=== PATIENT | female | born 1980 | race Caucasian/White ===

== ENCOUNTER 2018-04-06 12:34 | Emergency (ER) | payer OTHER, MEDICAID, SELFPAY ==
[2018-04-06 12:41] VITALS: BP 136/103; PULSE 118; RESP 21; TEMP 36.7; O2SAT 100; BMI 28.3
--- NOTE | 2018-04-06 12:56 | ED.ANXIETY ---
HPI - Anxiety <RAUL Philippe - Last Filed: 04/06/18 21:41> General Chief Complaint: Anxiety Stated Complaint: Chest hurts,hard time with anxiety Time Seen by Provider: 04/06/18 12:55 Source: patient Mode of arrival: ambulatory Limitations: no limitations History of Present Illness HPI narrative: 37-year-old female with history of anxiety and panic attacks as a nonsmoker here for complaint of chest pain for the last month. She reports that she has been having difficulty with anxiety during the same timeframe. She currently takes sertraline and alprazolam for her symptoms. She denies any increased stress recently. She denies any trauma to the chest area. She does report having periods of hyperventilation. She denies any suicidal homicidal ideation she denies any stressors relievers of her symptoms. She denies smoking or any substance abuse. No nausea or vomiting. She does report she has reproducible pain with palpation to the chest wall. MD complaint: anxiety Related Data Previous Rx's Medication Instructions Recorded alprazolam 0.25 mg tablet 0.25 mg PO Q12HP PRN #30 tab 04/08/18 sertraline 50 mg tablet 75 mg PO QDAY #90 tab 04/08/18 Allergies Allergy/AdvReac Type Severity Reaction Status Date / Time No Known Drug Allergies Allergy Verified 04/08/18 10:28 Review of Systems <RAUL Philippe - Last Filed: 04/06/18 21:41> Constitutional Denies chills, Denies fatigue, Denies fever(s), Denies lethargy and Denies weakness Eyes Denies change in vision, Denies eye discharge, Denies irritation and Denies loss of vision ENT Ears, Nose, Mouth, and Throat: Denies change in voice, Denies neck pain and Denies sore throat Cardiovascular Reports chest pain, Denies dyspnea and Denies dyspnea on exertion Respiratory Denies cough, Denies dyspnea, Denies dyspnea on exertion and Denies wheezing Gastrointestinal Gastrointestinal: Denies abdominal pain, Denies change in bowel habits, Denies diarrhea, Denies nausea and Denies vomiting Genitourinary Denies hematuria, Denies flank pain, Denies urinary incontinence and Denies urinary urgency Musculoskeletal Denies neck pain Integumentary/Breasts Denies pruritus, Denies erythema, Denies rash and Denies wounds Neurologic Denies loss of vision and Denies weakness Psychiatric Reports anxiety Endocrine Denies fatigue and Denies flushing Hematologic/Lymphatic Denies easy bruising Allergic/Immunologic Denies wheezing Exam <RAUL Philippe - Last Filed: 04/06/18 21:41> Initial Vital Signs Initial Vital Signs: Vital Signs Temperature 98.1 F 04/06/18 12:41 Pulse Rate 118 H 04/06/18 12:41 Respiratory Rate 21 04/06/18 12:41 Blood Pressure 136/103 H 04/06/18 12:41 Pulse Oximetry 100 04/06/18 12:41 Const General: cooperative and well developed Nutritional Appearance: well nourished Orientation: alert, awake, oriented x3 and not confused HENMT Mouth: oral mucosae normal, oropharynx normal and moist mucous membranes Eyes Conjunctivae: conjunctivae normal Sclera: sclerae normal Pupils: PERRL EOM: EOM intact bilaterally Chest Other: Pain with palpation to the sternal area Resp Effort & Inspection: normal respiratory effort, able to speak in complete sentences, no respiratory distress and no use of accessory muscles Auscultation: clear to auscultation bilaterally, no rales, no rhonchi and no wheezes Cardio Rate: regular rate Rhythm: regular rhythm Heart Sounds: no click, no gallops, no murmurs and no rubs Pulses: normal peripheral pulses Skin General: no rashes or lesions noted, No jaundice and No petechiae Neuro General: alert, oriented x3, gait normal and no focal motor deficits Speech: speech normal Psych Appearance: grossly normal and well kempt Speech and Movement: speech and movement normal Mood: anxious mood Thought Content: no homicidality and suicidality <Bismark Laughlin DO - Last Filed: 04/09/18 08:43> Initial Vital Signs Initial Vital Signs: Vital Signs Temperature 98.1 F 04/06/18 12:41 Pulse Rate 118 H 04/06/18 12:41 Respiratory Rate 04/06/18 12:41 Blood Pressure 136/103 H 04/06/18 12:41 Pulse Oximetry 100 04/06/18 12:41 Scores <RAUL Philippe - Last Filed: 04/06/18 21:41> HEART Score Heart Score history: Slightly Suspicious Heart Score EKG: Normal Heart Score Age: < 45 years old Heart Score risk factors: No known risk factors Heart Score troponin: < or = to normal limit Heart Score Total: 0 PERC Score Age greater than or equal to 50 years: No Heart rate greater than or equal to 100 bpm: Yes Room Air O2 Sat less than 95%: No Unilateral leg swelling: No Recent trauma or surgery: No Hemoptysis: No Prior PE or DVT: No Hormone Use: No Total PERC Score: 1 Course <RAUL Philippe - Last Filed: 04/06/18 21:41> Orders Ordered: Discontinued Medications Sodium Chloride (Normal Saline 0.9%) 1,000 mls @ 1,000 mls/hr IV BOLUS ONE Stop: 04/06/18 14:02 Last Infusion: 04/06/18 14:21 Dose: 0 mls/hr Admin: 04/06/18 13:13 Dose: 1,000 mls/hr Lorazepam (Ativan) 1 mg IV NOW ONE Stop: 04/06/18 13:04 Last Admin: 04/06/18 13:13 Dose: 1 mg Vital Signs - 8 hr 04/06/18 13:56 Pulse Rate 83 Respiratory Rate 19 Blood Pressure [Right Arm] 126/89 Pulse Oximetry 93 <Bismark Laughlin DO - Last Filed: 04/09/18 08:43> Orders Ordered: Discontinued Medications Sodium Chloride (Normal Saline 0.9%) 1,000 mls @ 1,000 mls/hr IV BOLUS ONE Stop: 04/06/18 14:02 Last Infusion: 04/06/18 14:21 Dose: 0 mls/hr Admin: 04/06/18 13:13 Dose: 1,000 mls/hr Lorazepam (Ativan) 1 mg IV NOW ONE Stop: 04/06/18 13:04 Last Admin: 04/06/18 13:13 Dose: 1 mg Vital Signs - 8 hr 04/06/18 13:56 Pulse Rate 83 Respiratory Rate 19 Blood Pressure [Right Arm] 126/89 Pulse Oximetry 93 MDM - Anxiety <RAUL Philippe - Last Filed: 04/06/18 21:41> Lab Data Result diagrams: 04/06/18 12:46 04/06/18 12:46 Lab Results 04/06/18 04/06/18 04/06/18 Range/Units 12:46 12:46 12:46 WBC 10.3 (4.5-11.0) X10^3/uL RBC 4.85 (4.0-5.2) X10^6/uL Hgb 14.5 (12.0-16.0) g/dL Hct 41.2 (36-46) % MCV 84.9 (80-100) fL MCH 29.8 (26-34) PG MCHC 35.1 (30-36) % RDW 13.3 (11.6-14.8) % Plt Count 439 H (150-400) X10^3/uL Neut % (Auto) 62.3 (50-75) % Lymph % (Auto) 28.7 (25-40) % [place] % (Auto) 6.7 (3-14) % Eos % (Auto) 1.5 L (2-4) % Baso % (Auto) 0.8 (0-2) % Neut # (Auto) 6400 H (5781-3968) /uL APTT 34 (26.4-36.2) SECONDS D-Dimer < 200 (<230) ng/mL Sodium 144 (137-145) mmol/L Potassium 3.8 (3.4-5.1) mmol/L Chloride 104 (98-107) mmol/L Carbon Dioxide 22 (22-32) mmol/L BUN 11 (7-17) mg/dL Creatinine 0.60 (0.52-1.04) mg/dL Estimated GFR > 60.0 (>60) mL/min BUN/Creatinine Ratio 18.3 (6-22) Glucose 116 H (70-100) mg/dL Calcium 9.8 (8.4-10.2) mg/dL Total Bilirubin 0.6 (0.2-1.3) mg/dL AST 31 (14-36) IU/L ALT 30 (9-52) IU/L Alkaline Phosphatase 91 (38-126) U/L Total Creatine Kinase 38 (30-135) U/L Troponin I < 0.012 (0.01-0.034) ng/mL Total Protein 8.2 (6.3-8.2) g/dL Albumin 4.8 (3.5-5.0) g/dL Globulin 3.4 (1.7-4.1) g/dL Albumin/Globulin Ratio 1.4 (1.0-2.8) Point of Care Testing Test Results Negative Urine Dip Bedside Urine Glucose Negative Bedside Urine Bilirubin - Negative Bedside Urine Ketone - Negative Urine Specific [place] 1.015 Bedside Urine Occult Blood ++ Bedside Urine pH 6.0 Bedside Urine Protein - Negative Bedside Urine Urobilinogen - Negative Bedside Urine Nitrite - Negative Bedside Urine Leukocytes - Negative Esterase Imaging Data Chest x-ray: Radiologist's impression: [place] [id number] [place] [id number] XRay Report Signed Patient: Kathy Bryant JMR#: [id number] : 1980Acct:[id number] Age/Sex: 37 / FDate of Service: 04/06/18 Loc: ED Accession Number: [id number] Procedure: XR chest 1V Ordering Provider: Chano Lazo PROCEDURE: XR CHEST 1V INDICATIONS: Chest pain TECHNIQUE: One view of the chest was acquired. COMPARISON: [facility], , CHEST 1 VIEW, 11/01/2016, 7:44. FINDINGS: Surgical changes and devices: None. Lungs and pleura: No pleural effusions or pneumothorax. Lungs are clear. Mediastinum: Mediastinal contours appear normal. Heart size is normal. Bones and chest wall: No suspicious bony lesions. Overlying soft tissues appear unremarkable. IMPRESSION: Stable chest. No acute cardiopulmonary process is evident. Dictated by: Rayo Mays M.D. on 04/06/2018 at 12:54 Approved by: Rayo Mays M.D. on 04/06/2018 at 12:54 ECG Data Interpretation: EKG shows sinus rhythm with no ST elevation or depression. No ectopy. Ventricular rate of 92. W[place] interval of 170. QRS duration is 72. QT of 323, MDM Narrative Medical decision making narrative: CBC and Chem panel were obtained were unremarkable. D-dimer was obtained was negative. EKG shows sinus rhythm no ST elevation depression or ectopy. Chest x-ray was obtained was negative for any acute findings. Patient was given Ativan IV in the emergency room and felt better. Urinalysis shows a positive for blood patient is currently on her menstrual cycle no signs UTI. Signs and symptoms presents as anxiety X exacerbation with panic attack. She is encouraged to continue taking her anxiety medication as prescribed. She has an appointment with a mental health counselor. Recommended she follow up with primary care and also mental health counselor for further treatment. She is encouraged to use breathing exercises to help her symptoms. For any worsening symptoms return to the emergency room. <Bismark Laughlin, DO - Last Filed: 04/09/18 08:43> Lab Data Lab Results 04/06/18 04/06/18 04/06/18 Range/Units 12:46 12:46 12:46 WBC 10.3 (4.5-11.0) X10^3/uL RBC 4.85 (4.0-5.2) X10^6/uL Hgb 14.5 (12.0-16.0) g/dL Hct 41.2 (36-46) % MCV 84.9 (80-100) fL MCH 29.8 (26-34) PG MCHC 35.1 (30-36) % RDW 13.3 (11.6-14.8) % Plt Count 439 H (150-400) X10^3/uL Neut % (Auto) 62.3 (50-75) % Lymph % (Auto) 28.7 (25-40) % [place] % (Auto) 6.7 (3-14) % Eos % (Auto) 1.5 L (2-4) % Baso % (Auto) 0.8 (0-2) % Neut # (Auto) 6400 H (5357-0498) /uL APTT 34 (26.4-36.2) SECONDS D-Dimer < 200 (<230) ng/mL Sodium 144 (137-145) mmol/L Potassium 3.8 (3.4-5.1) mmol/L Chloride 104 (98-107) mmol/L Carbon Dioxide 22 (22-32) mmol/L BUN 11 (7-17) mg/dL Creatinine 0.60 (0.52-1.04) mg/dL Estimated GFR > 60.0 (>60) mL/min BUN/Creatinine Ratio 18.3 (6-22) Glucose 116 H (70-100) mg/dL Calcium 9.8 (8.4-10.2) mg/dL Total Bilirubin 0.6 (0.2-1.3) mg/dL AST 31 (14-36) IU/L ALT 30 (9-52) IU/L Alkaline Phosphatase 91 (38-126) U/L Total Creatine Kinase 38 (30-135) U/L Troponin I < 0.012 (0.01-0.034) ng/mL Total Protein 8.2 (6.3-8.2) g/dL Albumin 4.8 (3.5-5.0) g/dL Globulin 3.4 (1.7-4.1) g/dL Albumin/Globulin Ratio 1.4 (1.0-2.8) Point of Care Testing Test Results Negative Urine Dip Bedside Urine Glucose Negative Bedside Urine Bilirubin - Negative Bedside Urine Ketone - Negative Urine Specific [place] 1.015 Bedside Urine Occult Blood ++ Bedside Urine pH 6.0 Bedside Urine Protein - Negative Bedside Urine Urobilinogen - Negative Bedside Urine Nitrite - Negative Bedside Urine Leukocytes - Negative Esterase Discharge Plan Departure Patient Disposition: Home Clinical Impression: Anxiety Discharge Date/Time: 04/06/18 14:23 Interventions: ED Discharge Assessment Last Done: 04/06/18 14:22 Instructions: DI for Anxiety -- Adult Activity Restrictions/Additional Instructions: Laboratory results and imaging today were unremarkable. Signs and symptoms presents as anxiety exacerbation. Use currently prescribed anxiety medication as prescribed. Follow-up with your primary care provider and mental health provider. Use breathing exercises to help with anxiety symptoms. For any worsening symptoms return to the emergency room. Prescriptions: No Action sertraline [Zoloft] 50 mg tablet 75 mg PO QDAY Qty: 90 RF: 3 alprazolam 0.25 mg tablet 0.25 mg PO Q12HP PRN (Reason: Anxiety) Qty: 30 RF: 0 Referrals: Florinda Boston MD [Primary Care Provider] - <Bismark Laughlin DO - Last Filed: 04/09/18 08:43> [facility]: I was immediately available in the department for consultation. Documentation has been reviewed. I agree with assessment and plan.
--- NOTE | 2018-04-06 13:03 | DI.RAD.S_ITS ---
PROCEDURE: XR CHEST 1V INDICATIONS: Chest pain TECHNIQUE: One view of the chest was acquired. COMPARISON: [facility], , CHEST 1 VIEW, 11/01/2016, 7:44. FINDINGS: Surgical changes and devices: None. Lungs and pleura: No pleural effusions or pneumothorax. Lungs are clear. Mediastinum: Mediastinal contours appear normal. Heart size is normal. Bones and chest wall: No suspicious bony lesions. Overlying soft tissues appear unremarkable. IMPRESSION: Stable chest. No acute cardiopulmonary process is evident. Dictated by: Rayo Mays M.D. on 04/06/2018 at 12:54 Approved by: Rayo Mays M.D. on 04/06/2018 at 12:54
--- NOTE | 2018-04-06 13:07 | ED_ITS ---
HPI - Anxiety <RAUL Philippe - Last Filed: 04/06/18 21:41> General Chief Complaint: Anxiety Stated Complaint: Chest hurts,hard time with anxiety Time Seen by Provider: 04/06/18 12:55 Source: patient Mode of arrival: ambulatory Limitations: no limitations History of Present Illness HPI narrative: 37-year-old female with history of anxiety and panic attacks as a nonsmoker here for complaint of chest pain for the last month. She reports that she has been having difficulty with anxiety during the same timeframe. She currently takes sertraline and alprazolam for her symptoms. She denies any increased stress recently. She denies any trauma to the chest area. She does report having periods of hyperventilation. She denies any suicidal homicidal ideation she denies any stressors relievers of her symptoms. She denies smoking or any substance abuse. No nausea or vomiting. She does report she has reproducible pain with palpation to the chest wall. MD complaint: anxiety Related Data Previous Rx's Medication Instructions Recorded alprazolam 0.25 mg tablet 0.25 mg PO Q12HP PRN #30 tab 04/08/18 sertraline 50 mg tablet 75 mg PO QDAY #90 tab 04/08/18 Allergies Allergy/AdvReac Type Severity Reaction Status Date / Time No Known Drug Allergies Allergy Verified 04/08/18 10:28 Review of Systems <RAUL Philippe - Last Filed: 04/06/18 21:41> Constitutional Denies chills, Denies fatigue, Denies fever(s), Denies lethargy and Denies weakness Eyes Denies change in vision, Denies eye discharge, Denies irritation and Denies loss of vision ENT Ears, Nose, Mouth, and Throat: Denies change in voice, Denies neck pain and Denies sore throat Cardiovascular Reports chest pain, Denies dyspnea and Denies dyspnea on exertion Respiratory Denies cough, Denies dyspnea, Denies dyspnea on exertion and Denies wheezing Gastrointestinal Gastrointestinal: Denies abdominal pain, Denies change in bowel habits, Denies diarrhea, Denies nausea and Denies vomiting Genitourinary Denies hematuria, Denies flank pain, Denies urinary incontinence and Denies urinary urgency Musculoskeletal Denies neck pain Integumentary/Breasts Denies pruritus, Denies erythema, Denies rash and Denies wounds Neurologic Denies loss of vision and Denies weakness Psychiatric Reports anxiety Endocrine Denies fatigue and Denies flushing Hematologic/Lymphatic Denies easy bruising Allergic/Immunologic Denies wheezing Exam <RAUL Philippe - Last Filed: 04/06/18 21:41> Initial Vital Signs Initial Vital Signs: Vital Signs Temperature 98.1 F 04/06/18 12:41 Pulse Rate 118 H 04/06/18 12:41 Respiratory Rate 21 04/06/18 12:41 Blood Pressure 136/103 H 04/06/18 12:41 Pulse Oximetry 100 04/06/18 12:41 Const General: cooperative and well developed Nutritional Appearance: well nourished Orientation: alert, awake, oriented x3 and not confused HENMT Mouth: oral mucosae normal, oropharynx normal and moist mucous membranes Eyes Conjunctivae: conjunctivae normal Sclera: sclerae normal Pupils: PERRL EOM: EOM intact bilaterally Chest Other: Pain with palpation to the sternal area Resp Effort & Inspection: normal respiratory effort, able to speak in complete sentences, no respiratory distress and no use of accessory muscles Auscultation: clear to auscultation bilaterally, no rales, no rhonchi and no wheezes Cardio Rate: regular rate Rhythm: regular rhythm Heart Sounds: no click, no gallops, no murmurs and no rubs Pulses: normal peripheral pulses Skin General: no rashes or lesions noted, No jaundice and No petechiae Neuro General: alert, oriented x3, gait normal and no focal motor deficits Speech: speech normal Psych Appearance: grossly normal and well kempt Speech and Movement: speech and movement normal Mood: anxious mood Thought Content: no homicidality and suicidality <Bismark Laughlin DO - Last Filed: 04/09/18 08:43> Initial Vital Signs Initial Vital Signs: Vital Signs Temperature 98.1 F 04/06/18 12:41 Pulse Rate 118 H 04/06/18 12:41 Respiratory Rate 04/06/18 12:41 Blood Pressure 136/103 H 04/06/18 12:41 Pulse Oximetry 100 04/06/18 12:41 Scores <RAUL hPilippe - Last Filed: 04/06/18 21:41> HEART Score Heart Score history: Slightly Suspicious Heart Score EKG: Normal Heart Score Age: < 45 years old Heart Score risk factors: No known risk factors Heart Score troponin: < or = to normal limit Heart Score Total: 0 PERC Score Age greater than or equal to 50 years: No Heart rate greater than or equal to 100 bpm: Yes Room Air O2 Sat less than 95%: No Unilateral leg swelling: No Recent trauma or surgery: No Hemoptysis: No Prior PE or DVT: No Hormone Use: No Total PERC Score: 1 Course <RAUL Philippe - Last Filed: 04/06/18 21:41> Orders Ordered: Discontinued Medications Sodium Chloride (Normal Saline 0.9%) 1,000 mls @ 1,000 mls/hr IV BOLUS ONE Stop: 04/06/18 14:02 Last Infusion: 04/06/18 14:21 Dose: 0 mls/hr Admin: 04/06/18 13:13 Dose: 1,000 mls/hr Lorazepam (Ativan) 1 mg IV NOW ONE Stop: 04/06/18 13:04 Last Admin: 04/06/18 13:13 Dose: 1 mg Vital Signs - 8 hr 04/06/18 13:56 Pulse Rate 83 Respiratory Rate 19 Blood Pressure [Right Arm] 126/89 Pulse Oximetry 93 <Bismark Laughlin DO - Last Filed: 04/09/18 08:43> Orders Ordered: Discontinued Medications Sodium Chloride (Normal Saline 0.9%) 1,000 mls @ 1,000 mls/hr IV BOLUS ONE Stop: 04/06/18 14:02 Last Infusion: 04/06/18 14:21 Dose: 0 mls/hr Admin: 04/06/18 13:13 Dose: 1,000 mls/hr Lorazepam (Ativan) 1 mg IV NOW ONE Stop: 04/06/18 13:04 Last Admin: 04/06/18 13:13 Dose: 1 mg Vital Signs - 8 hr 04/06/18 13:56 Pulse Rate 83 Respiratory Rate 19 Blood Pressure [Right Arm] 126/89 Pulse Oximetry 93 MDM - Anxiety <RAUL Philippe - Last Filed: 04/06/18 21:41> Lab Data Result diagrams: 04/06/18 12:46 04/06/18 12:46 Lab Results 04/06/18 04/06/18 04/06/18 Range/Units 12:46 12:46 12:46 WBC 10.3 (4.5-11.0) X10^3/uL RBC 4.85 (4.0-5.2) X10^6/uL Hgb 14.5 (12.0-16.0) g/dL Hct 41.2 (36-46) % MCV 84.9 (80-100) fL MCH 29.8 (26-34) PG MCHC 35.1 (30-36) % RDW 13.3 (11.6-14.8) % Plt Count 439 H (150-400) X10^3/uL Neut % (Auto) 62.3 (50-75) % Lymph % (Auto) 28.7 (25-40) % [place] % (Auto) 6.7 (3-14) % Eos % (Auto) 1.5 L (2-4) % Baso % (Auto) 0.8 (0-2) % Neut # (Auto) 6400 H (9433-5950) /uL APTT 34 (26.4-36.2) SECONDS D-Dimer < 200 (<230) ng/mL Sodium 144 (137-145) mmol/L Potassium 3.8 (3.4-5.1) mmol/L Chloride 104 (98-107) mmol/L Carbon Dioxide 22 (22-32) mmol/L BUN 11 (7-17) mg/dL Creatinine 0.60 (0.52-1.04) mg/dL Estimated GFR > 60.0 (>60) mL/min BUN/Creatinine Ratio 18.3 (6-22) Glucose 116 H (70-100) mg/dL Calcium 9.8 (8.4-10.2) mg/dL Total Bilirubin 0.6 (0.2-1.3) mg/dL AST 31 (14-36) IU/L ALT 30 (9-52) IU/L Alkaline Phosphatase 91 (38-126) U/L Total Creatine Kinase 38 (30-135) U/L Troponin I < 0.012 (0.01-0.034) ng/mL Total Protein 8.2 (6.3-8.2) g/dL Albumin 4.8 (3.5-5.0) g/dL Globulin 3.4 (1.7-4.1) g/dL Albumin/Globulin Ratio 1.4 (1.0-2.8) Point of Care Testing Test Results Negative Urine Dip Bedside Urine Glucose Negative Bedside Urine Bilirubin - Negative Bedside Urine Ketone - Negative Urine Specific [place]vert 1.015 Bedside Urine Occult Blood ++ Bedside Urine pH 6.0 Bedside Urine Protein - Negative Bedside Urine Urobilinogen - Negative Bedside Urine Nitrite - Negative Bedside Urine Leukocytes - Negative Esterase Imaging Data Chest x-ray: Radiologist's impression: [place] [id number] [place] [id number] XRay Report Signed Patient: Kathy Bryant JMR#: [id number] : 1980Acct:[id number] Age/Sex: 37 / FDate of Service: 04/06/18 Loc: ED Accession Number: [id number] Procedure: XR chest 1V Ordering Provider: Chano Lazo PROCEDURE: XR CHEST 1V INDICATIONS: Chest pain TECHNIQUE: One view of the chest was acquired. COMPARISON: [facility], , CHEST 1 VIEW, 11/01/2016, 7:44. FINDINGS: Surgical changes and devices: None. Lungs and pleura: No pleural effusions or pneumothorax. Lungs are clear. Mediastinum: Mediastinal contours appear normal. Heart size is normal. Bones and chest wall: No suspicious bony lesions. Overlying soft tissues appear unremarkable. IMPRESSION: Stable chest. No acute cardiopulmonary process is evident. Dictated by: Rayo Mays M.D. on 04/06/2018 at 12:54 Approved by: Rayo Mays M.D. on 04/06/2018 at 12:54 ECG Data Interpretation: EKG shows sinus rhythm with no ST elevation or depression. No ectopy. Ventricular rate of 92. CT interval of 170. QRS duration is 72. QT of 323, MDM Narrative Medical decision making narrative: CBC and Chem panel were obtained were unremarkable. D-dimer was obtained was negative. EKG shows sinus rhythm no ST elevation depression or ectopy. Chest x-ray was obtained was negative for any acute findings. Patient was given Ativan IV in the emergency room and felt better. Urinalysis shows a positive for blood patient is currently on her menstrual cycle no signs UTI. Signs and symptoms presents as anxiety X exacerbation with panic attack. She is encouraged to continue taking her anxiety medication as prescribed. She has an appointment with a mental health counselor. Recommended she follow up with primary care and also mental health counselor for further treatment. She is encouraged to use breathing exercises to help her symptoms. For any worsening symptoms return to the emergency room. <Bismark Laughlin, DO - Last Filed: 04/09/18 08:43> Lab Data Lab Results 04/06/18 04/06/18 04/06/18 Range/Units 12:46 12:46 12:46 WBC 10.3 (4.5-11.0) X10^3/uL RBC 4.85 (4.0-5.2) X10^6/uL Hgb 14.5 (12.0-16.0) g/dL Hct 41.2 (36-46) % MCV 84.9 (80-100) fL MCH 29.8 (26-34) PG MCHC 35.1 (30-36) % RDW 13.3 (11.6-14.8) % Plt Count 439 H (150-400) X10^3/uL Neut % (Auto) 62.3 (50-75) % Lymph % (Auto) 28.7 (25-40) % [place] % (Auto) 6.7 (3-14) % Eos % (Auto) 1.5 L (2-4) % Baso % (Auto) 0.8 (0-2) % Neut # (Auto) 6400 H (0223-0235) /uL APTT 34 (26.4-36.2) SECONDS D-Dimer < 200 (<230) ng/mL Sodium 144 (137-145) mmol/L Potassium 3.8 (3.4-5.1) mmol/L Chloride 104 (98-107) mmol/L Carbon Dioxide 22 (22-32) mmol/L BUN 11 (7-17) mg/dL Creatinine 0.60 (0.52-1.04) mg/dL Estimated GFR > 60.0 (>60) mL/min BUN/Creatinine Ratio 18.3 (6-22) Glucose 116 H (70-100) mg/dL Calcium 9.8 (8.4-10.2) mg/dL Total Bilirubin 0.6 (0.2-1.3) mg/dL AST 31 (14-36) IU/L ALT 30 (9-52) IU/L Alkaline Phosphatase 91 (38-126) U/L Total Creatine Kinase 38 (30-135) U/L Troponin I < 0.012 (0.01-0.034) ng/mL Total Protein 8.2 (6.3-8.2) g/dL Albumin 4.8 (3.5-5.0) g/dL Globulin 3.4 (1.7-4.1) g/dL Albumin/Globulin Ratio 1.4 (1.0-2.8) Point of Care Testing Test Results Negative Urine Dip Bedside Urine Glucose Negative Bedside Urine Bilirubin - Negative Bedside Urine Ketone - Negative Urine Specific [place] 1.015 Bedside Urine Occult Blood ++ Bedside Urine pH 6.0 Bedside Urine Protein - Negative Bedside Urine Urobilinogen - Negative Bedside Urine Nitrite - Negative Bedside Urine Leukocytes - Negative Esterase Discharge Plan Departure Patient Disposition: Home Clinical Impression: Anxiety Discharge Date/Time: 04/06/18 14:23 Interventions: ED Discharge Assessment Last Done: 04/06/18 14:22 Instructions: DI for Anxiety -- Adult Activity Restrictions/Additional Instructions: Laboratory results and imaging today were unremarkable. Signs and symptoms presents as anxiety exacerbation. Use currently prescribed anxiety medication as prescribed. Follow-up with your primary care provider and mental health provider. Use breathing exercises to help with anxiety symptoms. For any worsening symptoms return to the emergency room. Prescriptions: No Action sertraline [Zoloft] 50 mg tablet 75 mg PO QDAY Qty: 90 RF: 3 alprazolam 0.25 mg tablet 0.25 mg PO Q12HP PRN (Reason: Anxiety) Qty: 30 RF: 0 Referrals: Florinda Boston MD [Primary Care Provider] - <Bismark Laughlin DO - Last Filed: 04/09/18 08:43> [facility]: I was immediately available in the department for consultation. Documentation has been reviewed. I agree with assessment and plan.
[2018-04-06 13:13] VITALS: BP 145/91; PULSE 98; RESP 31; O2SAT 99
[2018-04-06] MEDS: LORazepam 2 MG/ML SYRINGE 1 MG IV (13:13)
[2018-04-06] MEDS: SODIUM CHLORIDE 0.9% 1,000 ML 1000 ML IV (13:13)
[2018-04-06 13:23] LABS: Add Manual Diff / Slide Review NO; Basophils Percent Auto 0.8 % (0-2); Eosinophils Percent Auto 1.5 % (2-4); Hematocrit 41.2 % (36-46); Hemoglobin 14.5 g/dL (12.0-16.0); Lymphocytes Percent Auto 28.7 % (25-40); Mean Corpuscular HGB Conc 35.1 % (30-36); Mean Corpuscular Hemoglobin 29.8 PG (26-34); Mean Corpuscular Volume 84.9 fL (80-100); Monocytes Percent Auto 6.7 % (3-14); Neutrophils Absolute Auto 6400 /uL (3000-5900); Neutrophils Percent Auto 62.3 % (50-75); Platelet Count 439 X10^3/uL (150-400); Red Blood Cell Count 4.85 X10^6/uL (4.0-5.2); Red Cell Distribution Width 13.3 % (11.6-14.8); White Blood Cell Count 10.3 X10^3/uL (4.5-11.0)
[2018-04-06 13:28] LABS: PTT Partial Thromboplastin Tim 34 SECONDS (26.4-36.2)
[2018-04-06 13:31] LABS: Alanine Aminotransferase 30 IU/L (9-52); Albumin 4.8 g/dL (3.5-5.0); Albumin Globulin Ratio 1.4 (1.0-2.8); Alkaline Phosphatase 91 U/L (38-126); Aspartate Aminotransferase 31 IU/L (14-36); BUN Creatinine Ratio 18.3 (6-22); Bilirubin Total 0.6 mg/dL (0.2-1.3); Blood Urea Nitrogen 11 mg/dL (7-17); Calcium 9.8 mg/dL (8.4-10.2); Carbon Dioxide 22 mmol/L (22-32); Chloride 104 mmol/L (98-107); Creatine Kinase 38 U/L (30-135); Estimated Glomerular Filt Rate > 60.0 mL/min (>60); Globulin 3.4 g/dL (1.7-4.1); Glucose 116 mg/dL (70-100); HEMOLYSIS < 15 (0-50); Potassium 3.8 mmol/L (3.4-5.1); Sodium 144 mmol/L (137-145); Total Protein 8.2 g/dL (6.3-8.2)
[2018-04-06 13:34] LABS: D Dimer < 200 ng/mL (<230)
[2018-04-06 13:43] LABS: Troponin I < 0.012 ng/mL (0.01-0.034)
[2018-04-06 13:56] VITALS: BP 126/89; PULSE 83; RESP 19; O2SAT 93
== END 2018-04-06 14:23 | disposition home or self-care (01) ==
PROVIDERS: Emergency Provider Nurse Practitioner Family; Family Provider Family Medicine; PCP Family Medicine
DX: F41.9 Anxiety disorder, unspecified (principal); R07.9 Chest pain, unspecified
CPT/HCPCS: 36591; 71045; 80053; 81003; 81025; 82550; 82553; 84484; 85025; 85379; 85730; 93005; 96361; 96374; 99283; 99285; J2060

== ENCOUNTER → 2019-03-01 15:24 | Outpatient (CLI) | payer OTHER, MEDICAID, SELFPAY ==
[2019-03-01 16:09] LABS: Add Manual Diff / Slide Review NO; Basophils Absolute Auto 100 /uL (0-100); Eosinophils Absolute Auto 200 /uL (0-450); Eosinophils Percent Auto 1.6 % (2-4); Hematocrit 42.3 % (36-46); Hemoglobin 14.6 g/dL (12.0-16.0); Lymphocytes Absolute Auto 3300 /uL (1100-4500); Lymphocytes Percent Auto 25.4 % (25-40); Mean Corpuscular HGB Conc 34.5 % (30-36); Mean Corpuscular Hemoglobin 29.3 PG (26-34); Mean Corpuscular Volume 84.8 fL (80-100); Monocytes Absolute Auto 1000 /uL (0-900); Monocytes Percent Auto 7.6 % (3-14); Neutrophils Absolute Auto 8300 /uL (1500-7000); Neutrophils Percent Auto 64.4 % (50-75); Platelet Count 426 X10^3/uL (150-400); Red Blood Cell Count 4.99 X10^6/uL (4.0-5.2); Red Cell Distribution Width 13.2 % (11.6-14.8); White Blood Cell Count 12.9 X10^3/uL (4.5-11.0)
[2019-03-01 16:25] LABS: BUN Creatinine Ratio 16.7 (6-22); Blood Urea Nitrogen 10 mg/dL (7-17); Carbon Dioxide 24 mmol/L (22-32); Chloride 102 mmol/L (98-107); Estimated Glomerular Filt Rate > 60.0 mL/min (>60); Glucose 95 mg/dL (70-100); HEMOLYSIS < 15 (0-50); Potassium 4.1 mmol/L (3.4-5.1); Sodium 139 mmol/L (137-145)
--- NOTE | 2019-03-01 16:42 | DI.CT.S_ITS ---
PROCEDURE: CT ABDOMEN PELVIS W CON INDICATIONS: LOWER ABD PAIN/LOW GRADE FEVER TECHNIQUE: After the administration of oral and intravenous contrast, 5 mm thick sections acquired from the diaphragms to the symphysis. 5 mm thick coronal and sagittal reformats were performed. For radiation dose reduction, the following was used: automated exposure control, adjustment of mA and/or kV according to patient size. It is noted images were available online for interpretation at 8:25 AM on 03/02/19. COMPARISON: [facility], , PELVIC COMPLETE, 11/19/2016, 10:01. FINDINGS: Image quality: Excellent. ABDOMEN: Lung bases: Lung bases are clear. Heart size is normal. Solid organs: Liver is normal in size and enhancement. Steatosis is present. Gallbladder is unremarkable. Biliary system is non-dilated. Pancreas enhances normally. Spleen is normal in size. Punctate area of low attenuation is noted inferior lateral spleen seen on series 2 image 30. No priors are available for comparison. No adrenal nodules. Kidneys are normal in size and enhancement, without hydronephrosis. Peritoneum and bowel: Stomach, small bowel, and colon loops are normal in caliber and wall thickness. No free fluid or air. Nodes and vessels: No retroperitoneal or mesenteric adenopathy. Aorta and inferior vena cava are normal in caliber. Miscellaneous: No ventral hernias. PELVIS: Genitourinary: Bladder wall thickness is normal. 27 mm enhancing low attenuation focus within the left adnexa is present. Miscellaneous: No inguinal hernias or adenopathy. Bones: No suspicious bony lesions. No vertebral body compression fractures. IMPRESSION: 1. Enhancing low attenuation left adnexal likely hemorrhagic cyst. Dictated by: Radha Spencer M.D. on 03/02/2019 at 8:31 Approved by: Radha Spencer M.D. on 03/02/2019 at 8:36
[2019-03-01 16:56] LABS: TSH w/ Reflex to FT4 1.23 uIU/mL (0.47-4.68)
== END ==
PROVIDERS: PCP Family Medicine; Visit Provider Registered Nurse
DX: R10.30 Lower abdominal pain, unspecified (principal); R53.83 Other fatigue
CPT/HCPCS: 36415; 74177; 80048; 84443; 85025; Q9967

== ENCOUNTER → 2019-11-26 10:59 | Outpatient (CLI) | payer OTHER, SELFPAY ==
--- NOTE | 2019-11-26 11:00 | DI.CT.S_ITS ---
PROCEDURE: CT KIDNEY URETER BLADDER (KUB) INDICATIONS: left flank pain, suspect stone hx TECHNIQUE: Noncontrast 5 mm thick sections acquired from the diaphragms to the symphysis. 5 mm thick coronal and sagittal reformats were then performed. For radiation dose reduction, the following was used: automated exposure control, adjustment of mA and/or kV according to patient size. COMPARISON: [facility], CT, CT ABDOMEN PELVIS W CON, 03/01/2019, 17:42. FINDINGS: Image quality: Excellent. Lung bases: Lung bases are clear. Heart size is normal. Urinary system: Both kidneys are normal in size. No kidney stones. No hydronephrosis or perinephric fat stranding. Both ureters appear non-dilated throughout their expected courses. Bladder wall thickness is normal; no calcified bladder stones. Other solid organs: Liver is normal in size. Diffuse fatty liver infiltration is noted. Gallbladder wall does not appear thickened. Pancreas is normal in contours. Spleen is normal in size. No adrenal nodules. Peritoneum and bowel: Unenhanced bowel loops demonstrate normal wall thickness and caliber. No free fluid or air. Incidental note is made of a normal-appearing appendix. Nodes and vessels: No retroperitoneal or mesenteric adenopathy by size criteria. Aorta and inferior vena cava are normal in caliber. Abdominal wall: No ventral hernias. Pelvis: No free pelvic fluid. No inguinal hernias or adenopathy. No significant abnormality of the uterus can be seen. No adnexal abnormality is detected in Bones: No suspicious bony lesions. No vertebral body compression fractures. IMPRESSION: Negative for stones or obstructive uropathy. No imaging explanation is found for this patient's presenting symptoms. Incidental note is made of: Fatty liver infiltration Normal appendix Dictated by: Jm Contreras M.D. on 11/26/2019 at 11:56 Approved by: Jm Contreras M.D. on 11/26/2019 at 11:58
== END ==
PROVIDERS: PCP Family Medicine; Referring Provider Family Medicine; Visit Provider Family Medicine
DX: R10.9 Unspecified abdominal pain (principal); K76.0 Fatty (change of) liver, not elsewhere classified
CPT/HCPCS: 74176

== ENCOUNTER → 2021-05-21 16:21 | Outpatient (CLI) | payer OTHER, MEDICAID, SELFPAY ==
--- NOTE | 2021-05-21 16:25 | DI.RAD.S_ITS ---
PROCEDURE: XR FOOT RT MIN 3V INDICATIONS: RIGHT FOOT INJURY TECHNIQUE: 3 views of the foot were acquired. COMPARISON: None. FINDINGS: Bones: Intra-articular vertical fracture seen extending through the lateral aspect of the 1st distal phalanx from the base to the tuft level. No significant displacement. Adjacent soft tissue swelling. Soft tissues: No tibiotalar joint effusion. Achilles tendon appears normal. IMPRESSION: Intra-articular fracture involving the 1st distal phalanx. Dictated by: Patel Herron [facility] Interpreted: Xu De Los Santos MD on 05/21/2021 at 16:46 Transcribed by: TANISHA on 05/21/2021 at 16:47 Approved by: Xu De Los Santos M.D. on 05/21/2021 at 16:59
== END ==
PROVIDERS: PCP Family Medicine; Referring Provider Nurse Practitioner Family; Visit Provider Nurse Practitioner Family
DX: S92.421A Displaced fracture of distal phalanx of right great toe, initial encounter for closed fracture (principal); X58.XXXA Exposure to other specified factors, initial encounter
CPT/HCPCS: 73630

== ENCOUNTER 2021-10-29 12:50 | Emergency (ER) | payer OTHER, MEDICAID, SELFPAY ==
[2021-10-29 13:00] VITALS: BP 143/82; PULSE 94; RESP 16; TEMP 36.6; O2SAT 98; BMI 31.1
--- NOTE | 2021-10-29 13:06 | DI.RAD.S_ITS ---
PROCEDURE: XR ANKLE RT MIN 3V INDICATIONS: rolled right ankle, pain and unable to bearweight TECHNIQUE: 3 views of the ankle were acquired. COMPARISON: None. FINDINGS: Bones: No fractures or dislocations. Ankle mortise is normally aligned. No suspicious bony lesions. Mild degenerative changes are present at the medial malleolus. Soft tissues: No tibiotalar joint effusion. Achilles tendon appears normal. IMPRESSION: Degenerative change. No acute radiographic findings. If pain persists, followup imaging in 5-7 days is recommended to exclude occult fracture. Dictated by: Carmela Zamarripa M.D. on 10/29/2021 at 13:33 Approved by: Carmela Zamarripa M.D. on 10/29/2021 at 13:36
--- NOTE | 2021-10-29 13:48 | ED_ITS ---
HPI - Extremity Injury (Lower) <Wilner Smart PA-C - Last Filed: 10/29/21 19:40> General Chief Complaint: Extremity Injury, Lower Stated Complaint: Fell and injured right ankle/leg Time Seen by Provider: 10/29/21 13:38 Mode of arrival: Family Vehicle History of Present Illness HPI Narrative: Patient is a 41-year-old female presenting to the emergency department today for evaluation of right ankle pain. Patient states that she rolled her right ankle at approximately 12:00 p.m. today begin to experience immediate right ankle. She states she has been unable to bear weight on the right lower extremity since the injury. Of note, patient denies pain or injury elsewhere in states she did not hit her head or lose consciousness as a result of fall. No fevers, chills, chest pain, cough, shortness of breath, nausea, vomiting, diarrhea, constipation, abdominal pain, dysuria, hematuria, numbness and tingling lower extremities, or any other concerning symptoms reported. No further concerns were voiced at this time. Related Data Previous Rx's Medication Instructions Recorded trazodone 50 mg tablet 50 mg PO DAILY #30 tab 02/15/20 sertraline 50 mg tablet See Rx Instructions .ROUTE 10/09/20 .COMPLEX #90 tab sucralfate 1 gram tablet 1 g PO QAC #14 tab 01/05/21 alprazolam 0.25 mg tablet See Rx Instructions .ROUTE 05/25/21 .COMPLEX #30 tablet Allergies Allergy/AdvReac Type Severity Reaction Status Date / Time No Known Drug Allergies Allergy Verified 10/29/21 13:06 Review of Systems <Wilner Smart PA-C - Last Filed: 10/29/21 19:40> Constitutional Constitutional: Denies chills, Denies fatigue, Denies fever(s), Denies frequent falls, Denies lethargy and Denies weakness Eyes Eyes: Denies loss of vision ENT Ears, Nose, Mouth, and Throat: Denies dizziness and Denies neck pain Cardiovascular Cardiovascular: Denies chest pain, Denies irregular heart rhythm, Denies lightheadedness, Denies palpitations, Denies dyspnea, Denies dyspnea on exertion and Denies orthopnea Respiratory Respiratory: Denies cough, Denies dyspnea, Denies dyspnea on exertion and Denies wheezing Gastrointestinal Gastrointestinal: Denies abdominal pain, Denies change in bowel habits, Denies diarrhea, Denies nausea and Denies vomiting Genitourinary Genitourinary: Denies hematuria, Denies flank pain, Denies urinary incontinence and Denies urinary urgency Musculoskeletal Musculoskeletal: Denies back pain, Reports arthralgias (Right ankle), Reports joint swelling (Right ankle), Denies muscle weakness, Denies neck pain, Denies numbness and Denies tingling Integumentary/Breasts Skin/Breast: Denies pruritus, Denies erythema, Denies rash and Denies wounds Neurologic Neurologic: Denies behavioral changes, Denies confusion, Denies dizziness, Denies frequent falls, Denies loss of vision, Denies numbness, Denies tingling and Denies weakness Psychiatric Psychiatric: Denies behavioral changes and Denies confusion Endocrine Endocrine: Denies fatigue and Denies palpitations Allergic/Immunologic Allergic/Immunologic: Denies wheezing Patient History <Wilner Smart PA-C - Last Filed: 10/29/21 19:40> Medical History Anxiety Depression Palpitations Family History Grandfather Diabetes mellitus Father Myocardial infarction Social History marital status: number of children: 3 household members: family lives independently: Yes caregiver/support person: No housing: house Smoking Status: Never smoker second hand exposure: No alcohol intake: former substance use type: former substance user Smoking Status: Never smoker Substance Use Type: does not use Exam <Wilner Smart PA-C - Last Filed: 10/29/21 19:40> Narrative Exam Narrative: GENERAL: 41 year old patient appears stated age. Well-developed patient, in no acute distress. HEAD: Atraumatic. Normocephalic. EYES: Pupils equal round and reactive. Extraocular motions intact. No scleral icterus. No injection or drainage. ENT: Nose without bleeding, purulent drainage. Throat without erythema, tonsillar hypertrophy or exudate. Airway patent. NECK: Trachea midline. Non tender CARDIOVASCULAR: Regular rate and rhythm without murmurs, gallops, or rubs. RESPIRATORY: Clear to auscultation. Breath sounds equal bilaterally. No wheezes, rales, or rhonchi. GASTROINTESTINAL: Abdomen soft, non-tender, nondistended. EXTREMITIES: No edema. Tenderness to palpation appreciated over the lateral aspect of the right ankle without significant swelling or signs of deformity. No significant overlying erythema appreciated. No significant tenderness to palpation over the proximal aspect of the right 5th metatarsal. No tenderness over the deltoid ligament the right ankle. Patient is able to move the toes of the right foot without difficulty. Plantar flexion and dorsiflexion performed t he right lower extremity without issue. DP pulse palpated on the right. No significant tenderness to palpation appreciated on the medial aspect of the right ankle. BACK: Nontender without deformity or crepitance. No flank tenderness. NEURO: AOx3. SKIN: No rash or erythema of visible areas Initial Vital Signs Initial Vital Signs: Vital Signs Temperature 97.9 F 10/29/21 13:00 Pulse Rate 94 H 10/29/21 13:00 Respiratory Rate 16 10/29/21 13:00 Blood Pressure 143/82 H 10/29/21 13:00 Pulse Oximetry 98 10/29/21 13:00 Course <Wilner Smart PA-C - Last Filed: 10/29/21 19:40> Course Course Narrative: Right ankle x-ray obtained. Orders Ordered: ED Orders 10/29/21 13:06 XR ankle RT min 3V Stat Vital Signs Vital signs: Vital Signs - 8 hr 10/29/21 13:00 Temperature 97.9 F Pulse Rate 94 H Respiratory Rate 16 Blood Pressure 143/82 H Pulse Oximetry 98 MDM - Extremity Injury (Lower) <Wilner Smart PA-C - Last Filed: 10/29/21 19:40> Imaging Data Extremity x-ray #1: Radiologist's Impression: PROCEDURE:? XR ANKLE RT MIN 3V ? INDICATIONS:? rolled right ankle, pain and unable to bearweight ? TECHNIQUE:? 3 views of the ankle were acquired.? ? COMPARISON:? None. ? FINDINGS:? ? Bones:? No fractures or dislocations.? Ankle mortise is normally aligned.? No suspicious bony lesions.? Mild degenerative changes are present at the medial malleolus. ? Soft tissues:? No tibiotalar joint effusion.? Achilles tendon appears normal.? ? ? IMPRESSION:? Degenerative change. No acute radiographic findings. If pain persists, followup imaging in 5-7 days is recommended to exclude occult fracture. ? Dictated by: Carmela Zamarripa M.D. on 10/29/2021 at 13:33 ? ? Approved by: Carmela Zamarripa M.D. on 10/29/2021 at 13:36 ? MDM Narrative Medical decision making narrative: Differential diagnosis to consider but not limited to fracture versus dislocation versus sprain versus strain. Discussed results of x-ray obtained in the emergency department today with the patient and informed her that no acute bony abnormality such as fracture or dislocation was identified. I encouraged the patient to use RICE therapy: Rest, ice, compression, and elevation. I urged the patient to return to the emergency department or follow-up with her primary care provider in the next few days if her pain seems to be worsening rather than improving. She expresses understanding agrees to plan. She states that this time she is comfortable being discharged home is stable for discharge. Strict return precautions were discussed with the patient prior to discharge. Discharge Plan Departure Patient Disposition: Home Clinical Impression: Acute right ankle pain, Right ankle sprain Instructions: DI for Ankle Sprain Activity Restrictions/Additional Instructions: *You have been diagnosed with right ankle pain, right ankle sprain *What to do: *Please continue to take your regular medications as directed. [ ] New medication prescriptions sent to your pharmacy: [ ] [ ] New medication written as a paper prescription [X] No new medications given You were evaluated in the emergency department today for right ankle pain. X- ray imaging obtained in the emergency department today did not show signs of acute bony abnormalities such as fracture or dislocation. I recommend RICE therapy: Rest, ice, compression, and elevation. Please continue to use Tylenol and ibuprofen as needed for pain management. I recommend following up with you r primary care provider within the next 2-3 days for further evaluation and management. Do not hesitate to return to the emergency department if you experience fever, worsening pain, loss of sensation in the right lower extremity, worsening swelling, or any other concerning symptoms. *Please follow up with your primary care provider in 2-3 days, call for an appointment. Let them know you were seen in the Emergency Department and that we ask that you be seen in follow up. We will electronically transmit a record of today's note if your PCP is in our system *If you do not have a primary care provider please contact the [facility] Resource line at [phone]. They will ask some questions about your medical history and help get you set up with a doctor in the community. *Return to Emergency Department if you should have any new, worsening or concerning symptoms, such as fever greater than 101 F, shaking chills, worsening pain, persistent vomiting or other bothersome symptoms. Prescriptions: No Action sucralfate 1 gram tablet 1 g PO QAC Qty: 14 0RF trazodone 50 mg tablet 50 mg PO DAILY Qty: 30 2RF Hold Instructions: Home Medication placed on hold at Doctor's office sertraline 50 mg tablet See Rx Instructions .ROUTE .COMPLEX Qty: 90 3RF Dose Instruction: TAKE ONE TABLET BY MOUTH ONE TIME DAILY Rx Instructions: TAKE ONE TABLET BY MOUTH ONE TIME DAILY alprazolam 0.25 mg tablet See Rx Instructions .ROUTE .COMPLEX Qty: 30 0RF Dose Instruction: TAKE ONE TABLET BY MOUTH EVERY TWELVE HOURS NEEDED FOR ANXIETY Rx Instructions: TAKE ONE TABLET BY MOUTH EVERY TWELVE HOURS NEEDED FOR ANXIETY Referrals: Florinda Boston MD [Primary Care Provider] -
== END 2021-10-29 14:00 | disposition home or self-care (01) ==
PROVIDERS: Emergency Provider Physician Assistant; PCP Family Medicine
DX: S93.401A Sprain of unspecified ligament of right ankle, initial encounter (principal); X50.1XXA Overexertion from prolonged static or awkward postures, initial encounter
CPT/HCPCS: 73610; 99283

== ENCOUNTER → 2023-04-29 10:19 | Outpatient (CLI) | payer OTHER, MEDICAID, SELFPAY ==
[2023-04-29 11:20] LABS: Hemoglobin A1C% w Est Avg Glu 5.2 % (4.0-6.0)
[2023-04-29 11:25] LABS: Cholesterol 234 mg/dL (140-199); HDL Cholesterol 44 mg/dL (40-60); LDL Cholesterol Calculated 144 mg/dL (<100); Triglycerides 228 mg/dL (35-150)
[2023-04-29 12:16] LABS: Vitamin B12 366 pg/mL (239-931)
== END ==
PROVIDERS: PCP Family Medicine; Referring Provider Family Medicine; Visit Provider Family Medicine
DX: G62.9 Polyneuropathy, unspecified (principal); E66.9 Obesity, unspecified
CPT/HCPCS: 36415; 80061; 82607; 83036

== ENCOUNTER 2024-05-10 10:38 | Day surgery (SDC) | payer OTHER, MEDICAID, SELFPAY ==
[2024-03-30 13:27] VITALS: BMI 33.8
[2024-05-05 10:55] VITALS: BMI 33.8
[2024-05-10] VITALS (9 sets, daily range): BP systolic 107–135; BP diastolic 64–87; PULSE 83–971; RESP 10–17; TEMP 36.2–37; O2SAT 95–98; BMI 33.8
--- NOTE | 2024-05-10 | PATH_ITS ---
[facility] Accession Number: [id number] No. of containers..01 Tissue . 01 Material submitted: . LABIA - LABIAL CYST . 01 Diagnosis: LABIAL, BIOPSY: Final diagnosis pending outside expert consultation and will be reported as an addendum. MRV 05/14/2024 1347 Local . 01 Comment: Immunohistochemical stains using desmin, SMA, SONU, and S100 markers were performed. . 01 Electronically signed: . Ute Feliz MD, Dermatopathologist NPI- [id number] . 01 Gross description: . Received in formalin with two patient identifiers and cyst, is a arzola to brown spheroid soft tissue fragment with no skin grossly identified, 2.2 x 1.6 1.5 cm. Inked blue and serially sectioned to reveal a arzola and solid smooth cut surface. Specimen submitted entirely in A1-A4. ([id number]) /MRV 05/11/2024 1517 Local . 01 Pathologist provided ICD-10: D48.5 . 01 CPT . 679655, [id number], [id number] Specimen Comment: A courtesy copy of this report has been sent to [facility] Performed at: [address] [facility] [address] [facility], [place], [place] [id number] MD Sami Oliveira MD Phone: [phone]
[2024-05-10] MEDS: ACETAMINOPHEN 325 MG TABLET 975 MG PO (11:23)
[2024-05-10] MEDS: LACTATED RINGERS 1,000 ML 42 ML IV (11:25)
--- NOTE | 2024-05-10 11:39 | PM.GYNHP.1 ---
History of Present Illness History of Present Illness Reason for admission: other (symptomatic bartholin cyst without abscess) Narrative: Kathy Bryant is a 43 year old female with h/o symptomatic L bartholin cyst without abscess. Pt was initially seen in office January 2024 for same, desired definitive surgical management with marsupialization secondary to size and chronicity. Pt desired to defer procedure due to planned summer vacation. Today she affirms that area is still symptomatic and desires to proceed with procedure as scheduled today. Denies significant interval changes in personal or family health history since time of last encounter. [facility] Medical History (Updated 05/10/24 @ 12:03 by Leeanne Lyman MD) Bartholin gland cyst Depression Anxiety Palpitations Family History Grandfather Diabetes mellitus Father Myocardial infarction Social History marital status: number of children: 3 household members: spouse and family lives independently: Yes caregiver/support person: No housing: house Smoking Status: Never smoker second hand exposure: No alcohol intake: former substance use type: former substance user Meds Home Medications and Allergies Home Medications Medication Instructions Recorded Confirmed Type sertraline 50 mg tablet See Rx Instructions .Route 03/10/23 05/10/24 Rx .COMPLEX #90 tabs alprazolam 0.25 mg tablet See Rx Instructions .Route 02/18/24 05/10/24 Rx .COMPLEX #30 tabs Allergies Allergy/AdvReac Type Severity Reaction Status Date / Time No Known Drug Allergies Allergy Verified 05/10/24 11:05 Review of Systems Review of Systems ROS: Yes All systems reviewed with the patient and are negative except as otherwise documented Exam Vital Signs (past 8 hours): - 05/10/24 11:09 Temperature 98.1 F Pulse Rate 83 Respiratory Rate 16 Blood Pressure 135/87 Pulse Oximetry 98 Oxygen Delivery Method Room Air Oxygen Delivery Method Room Air Const General: cooperative and comfortable Orientation: alert, awake and oriented x3 Limitations: mental status not altered Resp Effort & Inspection: normal respiratory effort and able to speak in complete sentences Skin General: no rashes or lesions noted Neuro General: patient alert, patient awake and patient oriented x3 Extrem General: normal to inspection Psych Mental Status: mental status grossly normal Judgment: judgment good Assessment & Plan Assessment and plan (1) Bartholin gland cyst: Status: Acute Plan 43yo presents for scheduled outpatient procedure, 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
--- NOTE | 2024-05-10 11:39 | PM.PREOP ---
Pre-operative Note Interval Note History & Physical reviewed/Exam performed by Physician: Yes Changes to H&P: No H&P completed within 30 days and has changed as indicated here:: 05/10/24 ASA Class (for procedural sedation): II
--- NOTE | 2024-05-10 12:41 | SUR.OPER ---
Lithotomy on padded OR bed, head on pillow, arms secured on padded arm boards at <90 degrees abduction. Legs secured in padded yellow fins stirrups.
[2024-05-10] MEDS: BUPIVACAINE 0.25% (PF) 30 ML, EPINEPHrine 0.15 MG INJ (13:09)
[2024-05-10] MEDS: OXYCODONE IR 5 MG TABLET PO (14:00)
--- NOTE | 2024-05-10 14:23 | PM.OP.1 ---
Operative Date/Time/Diagnoses Date of procedure: 05/10/24 Time of procedure: 12:30 Pre-op diagnosis: symptomatic bartholin gland cyst without abscess Post-op diagnosis: other (L labial inclusion cyst) Procedure & Clinicians Procedure: exam under anesthesia, removal of L labial cyst Same procedure as scheduled: No (intraoperative findings inconsistent with bartholin gland cyst) Indications: symptomatic L labial cyst, presumed bartholin gland Surgeon: Leeanne Lyman Click Yes if Unassisted: No Anesthesia Type: General Operative Notes Findings: 3x1.5cm mobile L labial cyst Closure Type: primary Specimen(s): other (L labial cyst ) Estimated Blood Loss (mL): 5 Blood products transfused: none Procedure in detail: Pt was taken to the operating room, transferred to OR table and anesthesia was induced with placement of ETT.? Pt had her legs placed in [place] stirrups and an exam under anesthesia was performed. The patient was prepped and draped in a sterile fashion.? A time out was performed.? Exam under anesthesia performed with findings as noted above. The L labia with tagged with 4-0 vicryl suture and displaced laterally with hemostat to L drape for improved visualization. The cyst was palpated as quite mobile within the labia without appreciable attachment to underlying structure. The overlying epithelium was superficially infiltrated with 0.25% bupivicaine with epinephrine for local analgesia as well as hydrodissection. The epithelium was incised sharply using the #11 blade. The edges of the epithelium were then grasped bilaterally using allis clamps and the underlying cyst was visualized. The underlying filmy attachments were sharply dissected using metzenbaum scissors; in tandem with gentle traction the cyst spontaneously expulsed from the tissue and was passed off the field for permanent study. Underlying wound bed inspected, hemostasis acheived with judicious use of bovie cautery. Epithelium was then reapproximated using 4-0 vicryl in a running fashion. Area was again confirmed to be hemostatic off of tension. The patient then had her legs taken out of stirrups.? The patient tolerated the procedure well and without difficulty.? The patient was awakened from anesthesia and taken to PACU in stable condition. Complications: none Post-operative Condition: stable Disposition: PACU Plan for aftercare: dc to home routine outpatient f/u in office as scheduled
--- NOTE | 2024-05-10 14:33 | SUR.PHASEII ---
Patient able to sit on the side of the bed but reported feeling dizzy. Patient was assisted to lay back down. Water provided.
[2024-05-10] MEDS: ONDANSETRON 4 MG/2 ML INJ IV (14:54)
--- NOTE | 2024-05-10 14:56 | SUR.PHASEII ---
Patient c/o nausea after ambulating to the bathroom. Zofran and crackers provided. Patient declined QueaseEase.
== END 2024-05-10 15:31 | disposition home or self-care (01) ==
PROVIDERS: PCP Family Medicine; Referring Provider Obstetrics & Gynecology; Visit Provider Obstetrics & Gynecology
PROC: (CPT 56440; principal; 2024-05-10 12:15)
DX: N75.0 Cyst of Bartholin's gland (principal)
CPT/HCPCS: 11426; J0171; J1100; J2250; J2405; J2704; J3010

== ENCOUNTER → 2024-06-24 15:10 | Outpatient (CLI) | payer OTHER, MEDICAID, SELFPAY ==
[2024-06-24 15:56] LABS: Influenza A - CEPHEID Flu A NEGATIVE (NEGATIVE); Influenza B - CEPHEID Flu B NEGATIVE (NEGATIVE); Respiratory Syncytial Virus Negative (Negative)
[2024-06-24 16:05] LABS: COVID-19 CEPHEID 4-PLEX PCR Negative (Negative)
== END ==
PROVIDERS: PCP Family Medicine; Visit Provider Student in an Organized Health Care Education/Training Program
DX: R05.1 Acute cough (principal)
CPT/HCPCS: 0241U

== ENCOUNTER → 2024-06-24 15:32 | Outpatient (CLI) | payer OTHER, MEDICAID, SELFPAY ==
--- NOTE | 2024-06-24 15:34 | DI.RAD.S_ITS ---
PROCEDURE: XR CHEST 2V INDICATIONS: Cough greater than 1 week, fatigue TECHNIQUE: 2 views of the chest were acquired. COMPARISON: None. FINDINGS: Surgical changes and devices: None. Lungs and pleura: Lungs are clear. No pleural effusions or pneumothorax. Mediastinum: Mediastinal contours are normal. Heart size is normal. Bones and chest wall: No suspicious bony abnormalities. Soft tissues appear unremarkable. IMPRESSION: No acute cardiopulmonary abnormality is seen. Dictated by: Chano Foreman M.D. on 06/24/2024 at 16:17 Approved by: Chano Foreman M.D. on 06/24/2024 at 16:17
== END ==
PROVIDERS: PCP Family Medicine; Referring Provider Student in an Organized Health Care Education/Training Program; Visit Provider Student in an Organized Health Care Education/Training Program
DX: R05.1 Acute cough (principal); R53.83 Other fatigue
CPT/HCPCS: 0241U; 71046